=== PATIENT | female | born 1990 | race Caucasian/White ===

== ENCOUNTER 2021-02-15 09:18 | Day surgery (SDC) | payer OTHER ==
[2021-02-14 11:27] VITALS: BMI 23.0
[2021-02-15] MEDS ORDERED: Lidocaine 1% w/Epinephrine 1:100K 30 ML VIAL ONE ×2 (09:53→10:04)
[2021-02-15] MEDS ORDERED: Bacitracin Zinc Ointment 30 gm TUBE ONE ×2 (09:53→10:04)
[2021-02-15] MEDS ORDERED: Oxymetazoline HCl 0.05% (30 ML BOT) ONE ×2 (09:53→10:04)
[2021-02-15] MEDS ORDERED: Midazolam HCl 2 mg/2 ml Vial ONE ×2 (09:54→10:04)
[2021-02-15] MEDS ORDERED: Fentanyl 100 MCG/2 ML VIAL ONE (09:54)
[2021-02-15] MEDS ORDERED: HYDROmorphone 0.5 MG/0.5 ML SYRINGE ONE ×2 (09:55→11:35)
[2021-02-15] MEDS ORDERED: AFRIN NASAL MIST 15 ML BOT ONE (10:04)
[2021-02-15 10:31] LABS: BHCG - Serum Negative (NEGATIVE); Pregs Control Background? CLEAR/WHITE (CLR/WHITE); Pregs Control Bar Appear? YES (CONTROL BAR)
[2021-02-15] MEDS ORDERED: Esmolol 100 MG/10 ML VIAL ONE (10:31)
[2021-02-15] MEDS ORDERED: Lidocaine 1% PF 5 ML VIAL ONE (10:31)
[2021-02-15] MEDS ORDERED: Dexamethasone 20 MG/5 ML VIAL ONE (10:31)
[2021-02-15] MEDS ORDERED: Labetalol HCl 100 MG/20 ML VIAL ONE (10:31)
[2021-02-15] MEDS ORDERED: Ondansetron PF 4 MG/2 ML Vial ONE (10:31)
[2021-02-15] MEDS ORDERED: PROPOFOL 200 MG/20 ML VIAL ONE (10:31)
[2021-02-15] MEDS ORDERED: Propofol 1,000 MG/100 ML VIAL IV ONE (11:35)
== END 2021-02-15 14:50 | disposition home or self-care (01) ==
LOC: SDC 09:18
PROVIDERS: ATTEND Student in an Organized Health Care Education/Training Program
PROC: 09TL0ZZ Resection of Nasal Turbinate, Open Approach (ICD-10-PCS; principal; 2021-02-15)
PROC: 09QK0ZZ Repair Nasal Mucosa and Soft Tissue, Open Approach (ICD-10-PCS; principal; 2021-02-15)
PROC: 09SM0ZZ Reposition Nasal Septum, Open Approach (ICD-10-PCS; principal; 2021-02-15)
DX: J34.2 Deviated nasal septum (principal); J34.3 Hypertrophy of nasal turbinates; J34.89 Other specified disorders of nose and nasal sinuses; G43.909 Migraine, unspecified, not intractable, without status migrainosus; J32.9 Chronic sinusitis, unspecified; Z79.899 Other long term (current) drug therapy
CPT/HCPCS: 84703; 85014; C1889; J1100; J1170; J2250; J2405; J2704; J3010

== ENCOUNTER 2021-04-24 16:08 | Emergency (ER) | payer OTHER ==
[2021-04-24 16:39] LABS: #Eosinphils 0.1 thou/uL (0.0-0.7); #Lymphocytes 2.1 thou/uL (1.20-3.40); #Monocytes 0.4 thou/uL (0.11-0.59); #Neutrophils 4.3 thou/uL (1.40-6.50); %Basophils 0.5 % (0.0-1.0); %Eosinophils 1.9 % (0.0-10.0); %Lymphocytes 29.7 % (21.0-51.0); %Monocytes 6.2 % (0.0-10.0); %Neutrophils 61.7 % (42.0-75.0); Hemoglobin 12.8 g/dL (12.0-16.0); Mean Corpuscular HGB CONC 33.7 g/dL (32.0-36.0); Mean Corpuscular Hemoglobin 29.4 pg (27.0-31.0); Mean Corpuscular Volume 87.3 fL (78.0-98.0); Mean Platelet Volume 7.1 fL (7.4-10.4); Platelet Count 279 thou/uL (130-400); RBC Distribution Width 11.6 % (11.5-14.5); Red Blood Cell (RBC) Count 4.36 mill/uL (4.20-5.40)
[2021-04-24 17:03] LABS: ALT (SGPT) 13 U/L (8-55); AST (SGOT) 12 U/L (5-34); Albumin 4.3 g/dL (3.5-5.0); Alkaline Phosphatase 53 U/L (40-110); Anion Gap 17 mmol/L (10-20); BUN (Urea Nitrogen) 10 mg/dL (7.0-18.7); Bilirubin, Total 0.6 mg/dL (0.2-1.2); Calc. Creatinine Clearance 0 mL/min (70-130); Calcium 9.4 mg/dL (7.8-10.44); Carbon Dioxide 23 mmol/L (22-29); Chloride 103 mmol/L (98-107); Globulin 3.4 g/dL (2.4-3.5); Glucose 88 mg/dL (70-105); Potassium 4.5 mmol/L (3.5-5.1); Protein, Total 7.7 g/dL (6.0-8.3); Sodium 138 mmol/L (136-145)
[2021-04-24 18:34] LABS: BHCG - Serum Negative (NEGATIVE); Pregs Control Background? CLEAR/WHITE (CLR/WHITE); Pregs Control Bar Appear? YES (CONTROL BAR)
[2021-04-24 18:53] LABS: Pregnancy Test - Urine (BHCG) Negative (Negative); Pregu Control Background? CLEAR/WHITE (CLR/WHITE); Pregu Control Bar Appear? YES (CONTROL BAR)
[2021-04-24] MEDS ORDERED: Fentanyl 100 MCG/2 ML VIAL ONE (18:53)
[2021-04-24] MEDS ORDERED: Ondansetron PF 4 MG/2 ML Vial ONE (18:53)
[2021-04-24] MEDS ORDERED: Ketorolac Tromethamine 30 MG/ML VIAL ONE (18:53)
[2021-04-24 18:54] LABS: Bilirubin Negative (Negative); Blood, Urine 1+ (Negative); Clarity Turbid (Clear); Glucose, Urine (Dipstick) Normal (Negative); Ketone, Urine 20 mg/dL (Negative); Leukocyte 75 Leu/uL (Negative); Nitrite Negative (Negative); Protein, Urine (Dipstick) 30 mg/dL (Neg-Trace); Specific Gravity 1.029 (1.002-1.036); Specific Gravity, Urine 1.029 (1.002-1.036)
[2021-04-24 19:06] LABS: Bacteria/HPF 2+ HPF (None Seen); RBC/HPF 0-3 HPF (0-3)
[2021-04-24] MEDS ORDERED: cefTRIAXone\\ROCEPHIN 1 GM VIAL ONE (19:29)
== END 2021-04-24 20:33 | disposition home or self-care (01) ==
LOC: ERS 16:08
DX: N39.0 Urinary tract infection, site not specified (principal); K52.9 Noninfective gastroenteritis and colitis, unspecified; Z79.899 Other long term (current) drug therapy
CPT/HCPCS: 36415; 74176; 76856; 80053; 81003; 81015; 81025; 84703; 85025; 87086; 93976; 96365; 96375; J0696; J1885; J2405; J3010